=== PATIENT | female | born 1975 | race Hispanic/Latino ===

== ENCOUNTER 2016-11-26 12:00 | Emergency (ER) | payer MEDICAID, OTHER ==
[2016-11-26 12:00] VITALS: BMI 33.3
[2016-11-26 12:05] VITALS: BP 130/83; RESP 20; TEMP 98.1; O2SAT 99
[2016-11-26] MEDS ORDERED: Sodium Chloride 0.9% 1,000 ML IV STA (12:28)
--- NOTE | 2016-11-26 12:33 | ED PDOC ---
HPI: General Adult Time Seen by Provider: 11/26/16 12:10 Chief Complaint (Nursing): Back Pain History Per: Patient Additional Complaint(s): Pt. states for the past 4 months she's had atraumatic L sided flank pain. Reports yesterday pain became worse. Pt. has been taking Motrin without relief. Also reports feeling nauseous and had 2 episodes of non-bloody vomiting. Further states that she's had a kidney infection in the past but admits that this pain is different. Denies diarrhea, melena, hematochezia, BRBPR, hematemesis, trauma, chest pain, SOB, palpitations, fever, dysuria, hematuria, incontinence, fever. Past Medical History Reviewed: Historical Data, Nursing Documentation, Vital Signs Vital Signs: Last Vital Signs Temp 98.1 F 11/26/16 12:04 Pulse 78 11/26/16 14:04 Resp 20 11/26/16 12:04 BP 130/83 11/26/16 12:04 Pulse Ox 99 11/26/16 14:04 - Medical History PMH: Arthritis - Family History Family History: States: No Known Family Hx - Immunization History Hx Influenza Vaccination: No Hx Pneumococcal Vaccination: No - Home Medications Home Medications: Ambulatory Orders Medication Instructions Recorded Ibuprofen 10/30/16 Methocarbamol [Robaxin] 500 mg PO TID #14 tab 10/30/16 Skelaxin 10/30/16 Cyclobenzaprine [Cyclobenzaprine 10 mg PO Q8 PRN #30 tab 11/26/16 HCl] Meloxicam [Mobic] 15 mg PO DAILY PRN #30 tab 11/26/16 - Allergies Allergies/Adverse Reactions: Allergies Allergy/AdvReac Type Severity Reaction Status Date / Time No Known Allergies Allergy Verified 10/30/16 12:43 Review of Systems ROS Statement: Except As Marked, All Systems Reviewed And Found Negative Musculoskeletal: Positive for: Back Pain Physical Exam - Reviewed Nursing Documentation Reviewed: Yes Vital Signs Reviewed: Yes - Physical Exam Appears: Positive for: Well, Non-toxic, No Acute Distress Head Exam: Positive for: ATRAUMATIC, NORMAL INSPECTION, NORMOCEPHALIC Skin: Positive for: Normal Color, Warm. Negative for: Rash Eye Exam: Positive for: EOMI, Normal appearance, PERRL ENT: Positive for: Normal ENT Inspection Neck: Positive for: Normal, Painless ROM Cardiovascular/Chest: Positive for: Regular Rate, Rhythm Respiratory: Positive for: CNT, Normal Breath Sounds Gastrointestinal/Abdominal: Positive for: Normal Exam, Soft. Negative for: Tenderness, Organomegaly, Mass, Guarding, Rebound Back: Positive for: Normal Inspection. Negative for: L CVA Tenderness, R CVA Tenderness, Vertebral Tenderness, Muscle Spasm Extremity: Positive for: Normal ROM Neurologic/Psych: Positive for: Alert, Oriented - Laboratory Results Result Diagrams: 11/26/16 12:55 11/26/16 12:55 Urine POC: Negative Urine dip results: Positive for: Leukocyte Esterase (small), Blood (trace). Negative for: Nitrate, Ketones, Glucose, Bilirubin, Protein - ECG ECG: Positive for: Interpreted By Me ECG Rhythm: Positive for: Sinus Rhythm. Negative for: ST/T Changes Rate: 78 O2 Sat by Pulse Oximetry: 99 - Progress ED Course And Treament: Labs ordered. Toradol 15mg IV, zofran 4mg IV. IV NS bolus. CT abd/pelvis w/o contrast ordered. EKG ordered. CT abd/pelvis w/o contrast: negative. Urine culture sent. Rocephin 1gm IV given. Disposition - Clinical Impression Clinical Impression: Back pain, UTI (urinary tract infection) - Patient ED Disposition Is Patient to be Admitted: No - Disposition Referrals: [facility] [Outside] Disposition: Routine/Home Disposition Time: 14:09 Condition: STABLE Prescriptions: Cyclobenzaprine [Cyclobenzaprine HCl] 10 mg PO Q8 PRN #30 tab PRN Reason: Muscle Spasm Meloxicam [Mobic] 15 mg PO DAILY PRN #30 tab PRN Reason: pain Instructions: Back Pain (ED), Urinary Tract Infection in Women (ED) Forms: [facility] ED School/Work Excuse Print Language: MALTESE
[2016-11-26 12:35] VITALS: PULSE 78
[2016-11-26 12:45] LABS: RBC URINE 8 /hpf (0-3); URINE BACTERIA RARE (<OCC); URINE BILIRUBIN NEGATIVE (NEGATIVE); URINE BLOOD NEGATIVE (NEGATIVE); URINE COLOR YELLOW (YELLOW); URINE GLUCOSE (UA) NEG (Normal); URINE KETONE NEGATIVE (NEGATIVE); URINE LEUKOCYTE ESTERASE MOD Leu/uL (Negative); URINE PROTEIN NEGATIVE (NEGATIVE); URINE UROBILINOGEN 0.2-1.0 mg/dL (0.2-1.0); WBC URINE 8 /hpf (0-5)
[2016-11-26 13:04] LABS: BASO % 0.6 % (0.0-2.0); EOS # 0.1 K/uL (0.0-0.7); EOS % 0.9 % (0.0-4.0); HEMATOCRIT 38.6 % (34.0-47.0); LYMPH # 1.6 K/uL (1.0-4.3); MEAN CELL VOLUME 88.1 fl (81.0-99.0); MEAN CORPUSCULAR HEMOGLOBIN 29.6 pg (27.0-31.0); MEAN CORPUSCULAR HGB CONC 33.6 g/dL (33.0-37.0); MEAN PLATELET VOLUME 9.2 fl (7.2-11.7); MONO # 0.6 K/uL (0.0-0.8); NEUT # 5.7 K/uL (1.8-7.0); NEUT % 71.5 % (50.0-75.0); NRBC % 0.1 % (0.0-0.0); RED CELL DISTRIBUTION WIDTH 13.5 % (11.5-14.5)
[2016-11-26 13:13] LABS: ALB/GLOB RATIO 1.1 (1.0-2.1); ALKALINE PHOSPHATASE 69 U/L (38-126); ALT/SGPT 27 U/L (9-52); AST/SGOT 25 U/L (14-36); BILIRUBIN,TOTAL 0.5 mg/dl (0.2-1.3); BLOOD UREA NITROGEN 9 mg/dl (7-17); CARBON DIOXIDE 24 mmol/L (22-30); CHLORIDE 106 mmol/L (98-107); GFR AFRICAN-AMERICAN > 60; GLUCOSE,RANDOM 76 mg/dL (65-105); LIPASE 57 U/L (23-300); POTASSIUM 3.7 MMOL/L (3.6-5.0); SODIUM 138 mmol/l (132-148); TOTAL PROTEIN 7.1 G/DL (6.3-8.2)
[2016-11-26] MEDS ORDERED: cefTRIAXone (Rocephin) 1 gm Inj ONE (13:55)
--- NOTE | 2016-11-26 14:00 | CT ---
PROCEDURE: CT Abdomen and Pelvis without intravenous contrast HISTORY: hematuria, flank pain COMPARISON: None. TECHNIQUE: Technique. Contrast Dose: Radiation dose: Total exam DLP = 08/06/2001 mGy-cm. This CT exam was performed using one or more of the following dose reduction techniques: Automated exposure control, adjustment of the mA and/or kV according to patient size, and/or use of iterative reconstruction technique. FINDINGS: LOWER THORAX: Unremarkable. LIVER: Unremarkable. No gross lesion or ductal dilatation. GALLBLADDER AND BILE DUCTS: Unremarkable. PANCREAS: Unremarkable. No gross lesion or ductal dilatation. SPLEEN: Unremarkable. ADRENALS: Unremarkable. No mass. KIDNEYS AND URETERS: Unremarkable. No hydronephrosis. No solid mass. VASCULATURE: Unremarkable. No aortic aneurysm. BOWEL: Unremarkable. No obstruction. No gross mural thickening. APPENDIX: Unremarkable. Normal appendix. PERITONEUM: Unremarkable. No free fluid. No free air. LYMPH NODES: Unremarkable. No enlarged lymph nodes. BLADDER: Unremarkable. 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 BONES: No acute fracture. OTHER FINDINGS: None. IMPRESSION: No urinary tract calculus or hydronephrosis. 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
--- NOTE | 2016-11-27 10:25 | CARD ---
APPROVED REPORT EKG Measurement Heart [id number] <Conclusion> Normal sinus rhythm Normal ECG
== END 2016-11-26 14:55 | disposition home or self-care (01) ==
LOC: H.ER 12:00
DX: N39.0 Urinary tract infection, site not specified (principal); M54.9 Dorsalgia, unspecified